=== PATIENT | female | born 1955 | race Caucasian/White ===

== ENCOUNTER 2018-12-04 07:15 | Outpatient (CLI) | payer MEDICARE, BC ==
[2018-12-04] MEDS ORDERED: ADENOSINE 60 MG/20 ML VIAL ONE (12:04)
--- NOTE | 2018-12-04 12:06 | NM ---
CARDIAC SPECT: CLINICAL HISTORY: 63-year-old female with chest pain. TECHNIQUE: A myocardial perfusion scan was performed using the single isotope one day protocol with technetium-9 9m sestamibi. 11 mCi were injected intravenously for the rest exam followed by 32 mCi for the stress exam. Pharmacologic stress with Adenosine was monitored and interpreted by Dr. Lazar. FINDINGS: Homogeneous tracer distribution is seen in the myocardial segments on stress and rest images without fixed or reversible defects. GATED SPECT LVEF: 74%. WALL MOTION EXAM: Normal. IMPRESSION: Normal myocardial perfusion scan. POS: [facility]
== END 2018-12-04 07:16 | disposition home or self-care (01) ==
LOC: NM 07:15
PROVIDERS: ATTEND Internal Medicine
DX: R07.9 Chest pain, unspecified (principal)
CPT/HCPCS: 78452; 93017; A9500; J0153

== ENCOUNTER 2025-09-10 08:07 | Outpatient (CLI) | payer MEDICARE, BC | END 2025-09-10 08:08 | disposition home or self-care (01) | LOC: SCSBT 08:07 | PROVIDERS: ATTEND Internal Medicine | DX: Z13.820 Encounter for screening for osteoporosis (principal); M81.0 Age-related osteoporosis without current pathological fracture | CPT/HCPCS: 77080 ==